=== PATIENT | female | born 1995 | race Asian ===

== ENCOUNTER 2018-04-01 11:53 | Emergency (ER) | payer OTHER ==
[2018-04-01 12:29] VITALS: BP 115/84
--- NOTE | 2018-04-01 13:05 | UC ---
Complaint Female HPI - HPI Summary HPI Summary: 22-year-old woman here with a chief complaint of burning with urination and blood in her urine. Symptoms started today. This reminds her of urinary tract infection. She does have some discomfort in the suprapubic area. It's worse with urination. No flank pain. No fevers. - History Of Current Complaint Chief Complaint: UCGU Stated Complaint: BLOOD IN URINE Time Seen by Provider: 04/01/18 12:10 Hx Last Menstrual Period: 3-4 weeks ago - due in 4-5 days Pain Intensity: 6 - Allergies/Home Medications Allergies/Adverse Reactions: Allergies Allergy/AdvReac Type Severity Reaction Status Date / Time No Known Allergies Allergy Verified 04/01/18 12:29 Home Medications: Home Medications Control 1 tab PO DAILY 04/01/18 [History Confirmed 04/01/18] PMH/Surg Hx/FS Hx/Imm Hx Previously Healthy: Yes - Surgical History Surgical History: None - Family History Known Family History: Positive: Non-Contributory - Social History Alcohol Use: Rare Substance Use Type: None Smoking Status (MU): Never Smoked Tobacco Review of Systems All Other Systems Reviewed And Are Negative: Yes Constitutional: Positive: Negative Skin: Positive: Negative Eyes: Positive: Negative ENT: Positive: Negative Respiratory: Positive: Negative Cardiovascular: Positive: Negative Gastrointestinal: Positive: Negative Genitourinary: Positive: Dysuria, Hematuria, Frequency, Urgency Motor: Positive: Negative Neurovascular: Positive: Negative Musculoskeletal: Positive: Negative Neurological: Positive: Negative Psychological: Positive: Negative Is Patient Immunocompromised?: No Physical Exam Triage Information Reviewed: Yes Appearance: Well-Appearing, No Pain Distress, Well-Nourished Vital Signs: Initial Vital Signs Temp 98.3 F 04/01/18 12:24 Pulse 100 04/01/18 12:24 Resp 16 04/01/18 12:24 BP 115/84 04/01/18 12:24 Pulse Ox 100 04/01/18 12:24 Vital Signs Reviewed: Yes Eye Exam: Normal Eyes: Positive: Conjunctiva Clear Neck exam: Normal Neck: Positive: Supple Respiratory: Positive: Lungs clear, Normal breath sounds, No respiratory distress Cardiovascular: Positive: RRR Abdomen Description: Positive: Nontender, Soft. Negative: CVA Tenderness (R), CVA Tenderness (L) Musculoskeletal Exam: Normal Musculoskeletal: Positive: Strength Intact, ROM Intact Neurological Exam: Normal Neurological: Positive: Alert, Muscle Tone Normal Psychological Exam: Normal Psychological: Positive: Age Appropriate Behavior Skin Exam: Normal Complaint Female Dx - Differential Dx/Diagnosis Provider Diagnoses: UTI Discharge - Sign-Out/Discharge Documenting (check all that apply): Patient Departure All imaging exams completed and their final reports reviewed: No Studies - Discharge Plan Condition: Stable Disposition: HOME Prescriptions: Cephalexin CAP* [Keflex CAP*] 500 mg PO TID #21 cap Phenazopyridine 200 mg (NF) [Pyridium 200 MG tab *] 200 mg PO TID PRN #10 tab PRN Reason: Pain Patient Education Materials: Urinary Tract Infection in Women (ED) Referrals: [facility] [place] PHYSICIAN REFERRAL [Outside] Additional Instructions: FOLLOW UP WITH YOUR DOCTOR IF NOT COMPLETELY IMPROVED. GET RECHECKED FOR ANY WORSENING OF YOUR CONDITION OR QUESTIONS OR CONCERNS. - Billing Disposition and Condition Condition: STABLE Disposition: Home
== END 2018-04-01 13:15 | disposition home or self-care (01) ==
LOC: UCEAST 11:53
DX: N39.0 Urinary tract infection, site not specified (principal); B96.20 Unspecified Escherichia coli [E. coli] as the cause of diseases classified elsewhere; R31.9 Hematuria, unspecified
CPT/HCPCS: 87077; 87086; 87186; 99202; G0463

== ENCOUNTER 2018-04-16 07:46 | Emergency (ER) | payer OTHER ==
--- NOTE | 2018-04-16 07:58 | ED ---
GI/ HPI - HPI Summary HPI Summary: This patient is a 22 year old F presenting to [facility] accompanied by a male with a chief complaint of dysuria and hematuria since this morning. Pt was treated for a UTI two weeks ago, the symptoms resolved, and began seeing symptoms again today. The patient rates the pain 5/10 in severity. Patient reports increased urinary frequency. Patient denies vaginal discharge, back pain, fevers, chills, nausea, or vomiting. She was previously treated at urgent care by Dr. Saeed with Cephalexin and Phenazopyridine for one week. LNMP a week ago. NKDA. PMHX none. No PMHx kindey stones or STIs. No SHx drugs, alcohol, or tobacco use. - History of Current Complaint Chief Complaint: EDUrogenitalProblems Time Seen by Provider: 04/16/18 07:56 Stated Complaint: POSS UTI Hx Obtained From: Patient Hx Last Menstrual Period: 3-4 weeks ago - due in 4-5 days Onset/Duration: Started Hours Ago Timing: Constant Severity: Moderate Current Severity: Moderate Pain Intensity: 5 Location of Pain: Groin Pain Characteristics: Burning Associated Signs and Symptoms: Negative: Back Pain, Nausea, Vomiting, Discharge , Fever Additional Signs & Symptoms: Negative: STD - Allergy/Home Medications Allergies/Adverse Reactions: Allergies Allergy/AdvReac Type Severity Reaction Status Date / Time No Known Allergies Allergy Verified 04/16/18 07:52 PMH/Surg Hx/FS Hx/Imm Hx Previously Healthy: Yes - says she has no medical history History: Reports: Other Problems/Disorders - previous UTI Denies: Hx Dialysis Sensory History: Denies: Hx Deafness Infectious Disease History: No Infectious Disease History: Denies: Traveled Outside the [place] in Last 30 Days - Family History Known Family History: Positive: Non-Contributory - Social History Alcohol Use: None Substance Use Type: Reports: None Smoking Status (MU): Never Smoked Tobacco Review of Systems Negative: Fever, Chills Negative: Vomiting, Nausea Positive: dysuria, frequency, hematuria. Negative: discharge Negative: Other - back pain All Other Systems Reviewed And Are Negative: Yes Physical Exam - Summary Physical Exam Summary: GENERAL: Patient is a well-developed and nourished female who is lying comfortable in the stretcher. Patient is not in any acute respiratory distress. HEAD AND FACE: Normocephalic EYES: PERRLA, EOMI x 2. EARS: Hearing grossly intact. MOUTH: Oropharynx within normal limits. NECK: Supple, trachea is midline, no adenopathy, no JVD, no carotid bruit. CHEST: Symmetric, no tenderness at palpation LUNGS: Clear to auscultation bilaterally. No wheezing or crackles. CVS: Regular rate and rhythm, S1 and S2 present, no murmurs or gallops appreciated. ABDOMEN: Soft, non-tender. Bowel sounds are normal. No abdominal abnormal pulsations. No CVA tenderness. EXTREMITIES: Full ROM in all major joints, no edema, no cyanosis or clubbing. NEURO: Alert and oriented x 3. No acute neurological deficits. Speech is normal and follows commands. SKIN: Dry and warm : No blood coming from the cervical os, no CMT, scant non- malodorous white discharge in vault, Triage Information Reviewed: Yes Vital Signs On Initial Exam: Initial Vitals Temp Pulse Resp BP Pulse Ox 98.5 F 79 16 115/77 100 04/16/18 07:50 04/16/18 07:50 04/16/18 07:50 04/16/18 07:50 04/16/18 07:50 Vital Signs Reviewed: Yes Diagnostics - Vital Signs Vital Signs Temp Pulse Resp BP Pulse Ox 04/16/18 07:50 98.5 F 79 16 115/77 100 - Laboratory Result Diagrams: 04/16/18 08:06 04/16/18 08:06 Lab Statement: Any lab studies that have been ordered have been reviewed, and results considered in the medical decision making process. - Ultrasound No standard instances Ultrasound Interpretation Completed By: Radiologist Summary of Ultrasound Findings: Negative renal bladder ultrasound. ED physician has reviewed this report Re-Evaluation - Re-Evaluation First Eval Re-Evaluation Time: 08:30 Comment: Once the patient was found to have urine in her blood, I decided to perform a vaginal exam to see if there was blood coming from the cervix, and there was not. GIGU Course/Dx - Course Course Of Treatment: This patient is a 22 year old F presenting to [facility] accompanied by a male with a chief complaint of dysuria and hematuria since this morning. Pt was treated for a UTI two weeks ago, the symptoms resolved, and began seeing symptoms again today. The patient rates the pain 5/10 in severity. Patient reports increased urinary frequency. Patient denies vaginal discharge, back pain, fevers, chills, nausea, or vomiting. She was previously treated at urgent care by Dr. Saeed with Cephalexin and Phenazopyridine for one week. US abd/bladder reveals, per radiologist, Negative renal bladder ultrasound. ED physician has reviewed this radiology report. I looked at a previous culture from 04/01, she grew E. coli and is Pen-sensitive. The blood in her urine was not coming from her cervix, as shown in a vaginal exam. Test results with no significant abnormalities. Discussed results with patient and she reports feeling better. She is hemodynamically stable and safe for discharge. Strict return precautions given and she will otherwise follow up with her PCP. Patient will be discharged with prescription for Ciprofloxacin and follow up from [facility] physician referral. The patient is agreeable with this plan - Diagnoses Provider Diagnoses: Hemorrhagic cystitis Discharge - Sign-Out/Discharge Documenting (check all that apply): Patient Departure - discharge - Discharge Plan Condition: Stable Disposition: HOME Prescriptions: Ciprofloxacin TAB* [Cipro 500 MG TAB*] 500 mg PO BID 7 Days #14 tab Phenazopyridine 200 mg (NF) [Pyridium 200 MG tab *] 200 mg PO TID #12 tab Patient Education Materials: Urinary Tract Infection in Women (ED) Referrals: [facility] [place] PHYSICIAN REFERRAL [Outside] - 2 Days Additional Instructions: Follow up with your primary care physician in 1-3 days. RETURN TO THE EMERGENCY DEPARTMENT FOR CHANGING OR WORSENING SYMPTOMS. - Billing Disposition and Condition Condition: STABLE Disposition: Home - Attestation Statements Document Initiated by Jessica: Yes Documenting Scribe: Isidoro Dixon Provider For Whom Jessica is Documenting (Include Credential): Bhavani Cannon MD Scribe Attestation: Isidoro Leiva, scribed for Bhavani Cannon MD on 04/16/18 at 1114. Scribe Documentation Reviewed: Yes Provider Attestation: The documentation as recorded by the Isidoro rivera accurately reflects the service I personally performed and the decisions made by me, Bhavani Cannon MD Status of Scribe Document: Viewed
[2018-04-16 08:19] LABS: ABS Basophils 0.1 10^3/ul (0-0.2); ABS Eosinophils 0.3 10^3/ul (0-0.6); ABS Lymphocytes 1.6 10^3/ul (1.0-4.8); ABS Monocytes 0.3 10^3/ul (0-0.8); ABS Nucleated RBC 0 10^3/ul; Eosinophil % 4.4 %; Hematocrit 35 % (35-47); Hemoglobin 11.7 g/dl (12.0-16.0); Lymphocyte % 26.2 %; Mean Corpuscular HGB Conc 33 g/dl (31-36); Mean Corpuscular Hemoglobin 29 pg (27-31); Mean Corpuscular Volume 87 fL (80-97); Mean Platelet Volume 9.4 fL (7.4-10.4); Nucleated Red Blood Cells % 0; Platelet Count 173 10^3/ul (150-450); Red Blood Count 4.06 10^6/ul (4.00-5.40); Red Cell Distribution Width 14 % (10.5-15); White Blood Count 6.2 10^3/ul (3.5-10.8)
[2018-04-16 08:29] LABS: INR 0.9 (0.77-1.02)
[2018-04-16 08:34] LABS: Urine Appearance Cloudy; Urine Color Red
[2018-04-16 08:55] LABS: Urine Red Blood Cell 3+(>10/hpf) (Absent); Urine White Blood Cell Trace(0-5/hpf) (Absent)
[2018-04-16 10:58] VITALS: BP 110/68
== END 2018-04-16 10:57 | disposition home or self-care (01) ==
LOC: ED 07:46
DX: N30.90 Cystitis, unspecified without hematuria (principal)
CPT/HCPCS: 36415; 76770; 80053; 81003; 84702; 85025; 85610; 85730; 86141; 87086; 87491; 87591; 99282